=== PATIENT | female | born 1965 | race Caucasian/White ===

== ENCOUNTER 2020-08-22 23:17 | Emergency (ER) | payer BC ==
[~2020-08-22] VITALS: Ht 152.4 cm; Wt 72.7 kg
[2020-08-22 23:28] VITALS: BP 165/80
[2020-08-23] MEDS ORDERED: ORPH100T PO (00:18)
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
== END 2020-08-23 00:26 | disposition home or self-care (01) ==
LOC: ER 23:17
DX: S16.1XXA Strain of muscle, fascia and tendon at neck level, initial encounter (principal); S00.03XA Contusion of scalp, initial encounter; R51.9 Headache, unspecified; R11.0 Nausea; W18.09XA Striking against other object with subsequent fall, initial encounter; Y93.89 Activity, other specified; Y92.89 Other specified places as the place of occurrence of the external cause; Y99.8 Other external cause status
CPT/HCPCS: 99283